=== PATIENT | female | born 1990 | race African-American/Black ===

== ENCOUNTER 2017-02-01 12:16 | Emergency (ER) | payer OTHER ==
[~2017-02-01] VITALS: Ht 152.4 cm; Wt 54.8 kg
[2017-02-01 13:13] LABS: HEMATOCRIT 48.9 % (36.0-46.0); MCH 30.7 PG (29.0-34.0); MCHC 33.5 G/DL (30.0-36.0); MCV 91.6 FL (83-99); MEAN PLAT.VOLUME 10.3 uM^3 (9.5-12.4); PLATELET COUNT 324 K/uL (156-360); RBC DIS.WIDTH-CV 13.5 % (11.8-14.6); RBC DIS.WIDTH-SD 45.1 % (39-53); RED BLOOD COUNT 5.34 M/uL (3.80-5.20); WHITE BLOOD COUNT 13.7 K/uL (4.1-10.2)
[2017-02-01 13:24] LABS: CHLORIDE 108 mEq/L (99-109); POTASSIUM 3.7 mEq/L (3.7-5.4); SODIUM 144 mEq/L (136-147)
[2017-02-01 13:26] LABS: GLUCOSE 122 mg/dL (70-99)
[2017-02-01 13:27] LABS: ANION GAP 13 MEQ/L (2-14)
[2017-02-01 13:28] LABS: TOTAL BILIRUBIN 0.7 mg/dL (0.0-1.0)
[2017-02-01 13:30] LABS: ALKALINE PHOSPHATASE 58 IU/L (3-129)
[2017-02-01 13:31] LABS: UREA NITROGEN (BUN) 23 mg/dL (9-23)
[2017-02-01 13:33] LABS: GFR ESTIMATE (CALCULATED) > 59 mL/min/
[2017-02-01 13:40] LABS: QUANTITATIVE HCG < 4.0 MIU/ML
[2017-02-01 16:07] LABS: ADD MIUA? YES; BILIRUBIN NEGATIVE; BLOOD NEGATIVE; COLOR YELLOW ((YELLOW)); GLUCOSE (STRIP) NEGATIVE; KETONES 5; LEUKOCYTES NEGATIVE; NITRITE NEGATIVE; PROTEIN (STRIP) 100; SPECIFIC GRAVITY 1.027 (1.000-1.030); UROBILINOGEN 0.2 MG/DL (0.2-1.0)
[2017-02-01 16:18] LABS: BACTERIA NONE SEEN /HPF; EPITHELIAL CELLS 1+ /HPF; MUCUS 3+ /LPF; RED BLOOD CELLS 0-5 /HPF (0-5); UCUL ADDED? NO; WHITE BLOOD CELLS 0-5 /HPF (0-5)
[2017-02-01 16:22] VITALS: BP 139/90
[2017-02-01] MEDS ORDERED: ZOFRAN ODT4 MG PO (16:26)
== END 2017-02-01 17:41 | disposition home or self-care (01) ==
LOC: EME 12:16
DX: R11.2 Nausea with vomiting, unspecified (principal); R19.7 Diarrhea, unspecified; M54.5 Low back pain; F17.200 Nicotine dependence, unspecified, uncomplicated
CPT/HCPCS: 80053; 81003; 84702; 85027; 99281; 99285; J1885; J2405; J7030; S0028